=== PATIENT | male | born 1990 | race Two or more races ===

== ENCOUNTER 2019-01-28 16:34 | Emergency (ER) | payer SELFPAY ==
[~2019-01-28] VITALS: Ht 175.3 cm; Wt 72.6 kg
--- NOTE | 2019-01-28 17:05 | Emergency Room Report ---
History of Present Illness General Chief Complaint: Upper Extremity Injury Source: Patient Present Illness HPI 28-year-old male with no significant past medical history here complaining of pain and tingling sensation and left elbow on the lateral side x2 weeks. Patient denies fall or injury. Reports that he is left-handed and often uses his left hand and arm for lifting heavy objects. Patient reports the pain started on the left lateral epicondyle and radiates to fingers with occasional tingling sensation. Also complains of palpitations at nighttime only and having a hard time falling asleep denies chest pain or shortness of breath. Denies pain radiating to left arm. Denies abdominal pain, nausea, vomiting dizziness. Patient reports that he often does not have however spends a lot of time typing on his cell phone. Has not taken medication for symptom relief. Patient has full range of motion the affected side positive for tennis elbow. Allergies: Coded Allergies: No Known Allergies (Unverified , 01/28/19) Patient History Past Medical History: see triage record Past Surgical History: unable to obtain Pertinent Family History: none Immunizations: UTD Reviewed Nursing Documentation: PMH: Agreed; PSxH: Agreed Nursing Documentation-PMH Past Medical History: No Stated History Review of Systems All Other Systems: negative except mentioned in HPI Physical Exam Vital Signs Date Time Temp Pulse Resp B/P (MAP) Pulse Ox O2 Delivery O2 Flow Rate FiO2 01/28/19 16:39 98.2 63 18 128/82 (97) 97 Room Air Sp02 EP Interpretation: reviewed, normal General Appearance: no apparent distress, alert, GCS 15, non-toxic Head: normocephalic, atraumatic Eyes: bilateral eye normal inspection, bilateral eye PERRL ENT: hearing grossly normal, normal pharynx, no angioedema, normal voice Neck: full range of motion, supple/symm/no masses Respiratory: chest non-tender, lungs clear, normal breath sounds, speaking full sentences Cardiovascular #1: regular rate, rhythm, no edema, no murmur Cardiovascular #2: 2+ radial (R), 2+ radial (L) Gastrointestinal: normal bowel sounds, non tender, soft, non-distended, no guarding, no rebound Genitourinary: normal inspection, no CVA tenderness Musculoskeletal: back normal, gait/station normal, normal range of motion, non- tender, other - Positive left lateral epicondylitis Neurologic: alert, oriented x3, responsive, motor strength/tone normal, sensory intact, speech normal Psychiatric: judgement/insight normal, memory normal, mood/affect normal, no suicidal/homicidal ideation Skin: no rash Lymphatic: no adenopathy Medical Decision Making PA Attestation All my diagnosis and treatment plans were reviewed ad discussed with my supervising physician Dr. Newby Diagnostic Impression: Primary Impression: Lateral epicondylitis of elbow Additional Impression: Palpitations ER Course 28-year-old male with no significant past medical history here complaining of pain and tingling sensation and left elbow on the lateral side x2 weeks. Patient denies fall or injury. Reports that he is left-handed and often uses his left hand and arm for lifting heavy objects. Patient reports the pain started on the left lateral epicondyle and radiates to fingers with occasional tingling sensation. Also complains of palpitations at nighttime only and having a hard time falling asleep denies chest pain or shortness of breath. Denies pain radiating to left arm. Denies abdominal pain, nausea, vomiting dizziness. Patient reports that he often does not have however spends a lot of time typing on his cell phone. Has not taken medication for symptom relief. Patient has full range of motion the affected side positive for tennis elbow. Ddx considered but are not limited to : Elbow sprain versus strain versus fracture tennis elbow, carpal tunnel Vital signs: are WNL, pt. is afebrile H&PE are most consistent with: Tennis elbow ORDERS: No x-ray necessary as patient did not injure himself. Edd yao ED INTERVENTIONS: EKG DISCHARGE: At this time pt. is stable for d/c to home. Will provide printed patient care instructions, and any necessary prescriptions. Care plan and follow up instructions have been discussed with the patient prior to discharge. Advised patient to follow-up with primary care provider worsening symptoms where an elbow cellulitis from his physical activity take medication as directed if worsening symptoms return to the emergency room EKG Diagnostic Results Rate: normal Rhythm: NSR ST Segments: no acute changes Other Impression No tachycardia and no acute ST changes Last Vital Signs Date Time Temp Pulse Resp B/P (MAP) Pulse Ox O2 Delivery O2 Flow Rate FiO2 01/28/19 16:39 98.2 63 18 128/82 (97) 97 Room Air Disposition: HOME, SELF-CARE Condition: Stable Scripts Diclofenac Sodium (VOLTAREN) 100 Gm Gel..gram. 2 GM TP TID, #100 GM Prov: Delio Koch 01/28/19 Patient Instructions: Palpitations, [id number], Tennis Elbow, [id number] Additional Instructions: Take medication as directed follow-up with your primary care provider if pain continues MRI may be needed at this time no x-ray is needed as this is not involvement of your bone. Avoid strenuous physical activity with affected side of your elbow band. palpitations most likely secondary to anxiety Delio Koch Jan 28, 2019 17:05
[2019-01-28] MEDS ORDERED: VOLTAREN100 G1 TP (17:06)
--- NOTE | 2019-01-28 17:20 | NUR ---
ER DISCHARGE NOTE: Patient is cleared to be discharged per ERMD, pt is aox4, on room air, with stable vital signs. pt was given dc and prescription instructions, pt was able to verbalize understanding, pt is able to ambulate with steady gait. pt took all belongings.
[2019-01-28 18:21] VITALS: BP 128/82
[2019-01-28 19:32] VITALS: BP 128/82
== END 2019-01-28 17:30 | disposition home or self-care (01) ==
LOC: EMR 17:01
DX: M77.12 Lateral epicondylitis, left elbow (principal); R00.2 Palpitations
CPT/HCPCS: 93005; 99283